=== PATIENT | male | born 1975 | race Hispanic/Latino ===

== ENCOUNTER 2017-10-16 16:33 | Emergency (ER) | payer SELFPAY ==
[~2017-10-16] VITALS: Ht 162.6 cm; Wt 70.0 kg
[~2017-10-16 16:33] MED LIST: NO MEDS
[2017-10-16] MEDS ORDERED: TORADOL PO (18:08)
[2017-10-16] MEDS ORDERED: CLEOCIN300 MG PO (18:08)
[2017-10-16 18:18] VITALS: BP 133/82
== END 2017-10-16 18:18 | disposition home or self-care (01) | DRG 603 ==
LOC: ED 16:33
DX: L03.115 Cellulitis of right lower limb (principal)

== ENCOUNTER 2019-10-27 13:35 | Emergency (ER) | payer SELFPAY ==
[~2019-10-27 13:35] MED LIST changes: +CLEOCIN300 MG PO; +TORADOL PO
[2019-10-27 15:23] LABS: HEMATOCRIT 44.6 % (39.0-50.0); HEMOGLOBIN 14.7 g/dl (14.0-18.0); IMMATURE GRANULOCYTES 0.2 % (0.0-5.0); MEAN CELL VOLUME 92.9 fL CALC (80.0-100.0); MEAN CORPUSCULAR HGB 30.6 pG CALC (26.0-32.0); NEUT# 3.76 thou/uL (1.82-7.42); RED BLOOD COUNT 4.8 mill/uL (4.70-6.10); RED CELL DISTRI WIDTH 13.3 % (11.5-15.5)
[2019-10-27 15:27] LABS: URINE BILIRUBIN - DIPSTICK NEGATIVE (NEGATIVE); URINE BLOOD DIPSTICK NEGATIVE (NEGATIVE); URINE GLUCOSE - DIPSTICK NEGATIVE (NEGATIVE); URINE KETONE NEGATIVE (NEGATIVE); URINE LEUK ESTERASE NEGATIVE (NEGATIVE); URINE NITRITE - DIPSTICK NEGATIVE (Negative); URINE PROTEIN - DIPSTICK 30 mg/dL (NEG-TRACE); URINE SPECIFIC GRAVITY >=1.030
[2019-10-27 15:35] LABS: URINE COLOR DK. YELLOW
[2019-10-27 15:37] LABS: ALBUMIN 4.1 g/dL (3.2-5.0); ALKALINE PHOSPHATASE 98 u/l (38-126); ANION GAP 11 (6-22 (CALC)); BILIRUBIN, TOTAL 0.4 mg/dL (0.0-1.4); BUN 12 mg/dL (9-20); BUN/CREATININE RATIO 18 (12-20 (CALC)); CARBON DIOXIDE 30 mmol/l (22-30); CHLORIDE 102 mmol/l (95-108); CREATININE 0.7 mg/dL (0.7-1.3); GFR > 60 ML/MIN (>=60 (CALC)); GFR FOR AFR.AMER. > 60 ML/MIN (>=60 (CALC)); POTASSIUM 3.8 mmol/l (3.5-5.1); SGOT/AST 31 u/l (17-59); SODIUM 139 mmol/l (137-146); TOTAL PROTEIN 7.6 g/dL (6.3-8.2)
[2019-10-27 15:53] LABS: URINE RBC 0-2 RBC/hpf (0-5); URINE WBC 0-2 WBC/hpf (0-5)
[2019-10-27 17:23] VITALS: BP 117/74
--- NOTE | 2019-10-30 10:00 | NUR ---
Dr. Lord (director of strategic partnerships) notified patient of postive Covid results. Advised patient to quarantine until the health department contacts him with further instructions.
== END 2019-10-27 17:23 | disposition home or self-care (01) | DRG 179 ==
LOC: ED 13:35 → EDBD 13:35 → ED 14:27
PROVIDERS: Family Medicine
DX: U07.1 COVID-19 (principal)

== ENCOUNTER 2021-07-25 16:50 | Emergency (ER) | payer SELFPAY ==
[~2021-07-25] VITALS: Ht 157.5 cm; Wt 65.0 kg
[2021-07-25] VITALS (14 sets, daily range): BP systolic 115–135; BP diastolic 79–111
[2021-07-25] MEDS ORDERED: CORTISPORIN OTI10 M2 AS (22:24)
== END 2021-07-25 22:25 | disposition home or self-care (01) | DRG 156 ==
LOC: ED 16:50
PROC: 09C4XZZ Extirpation of Matter from Left External Auditory Canal, External Approach (ICD-10-PCS; principal; 2021-07-25)
DX: T16.2XXA Foreign body in left ear, initial encounter (principal); X58.XXXA Exposure to other specified factors, initial encounter